=== PATIENT | female | born 1990 | race Caucasian/White ===

== ENCOUNTER 2023-07-19 18:40 | Inpatient (IN) | payer BC ==
[2023-07-19] MEDS ORDERED: hydrALAZINE 20 MG/ML VIAL SLOW IVP PRN (18:49)
[2023-07-19] MEDS ORDERED: Docusate 100 MG CAP PO PRN (18:49)
[2023-07-19] MEDS ORDERED: Misoprostol 200 MCG TAB PR PRN (18:49)
[2023-07-19] MEDS ORDERED: Methylergonovine 0.2 MG/ML VIAL IM PRN (18:49)
[2023-07-19] MEDS ORDERED: Zolpidem Tartrate 5 MG TAB PO PRN (18:49)
[2023-07-19] MEDS ORDERED: Acetaminophen 500 MG TAB PO PRN (18:49)
[2023-07-19] MEDS ORDERED: Carboprost 250 MCG/ML AMP IM PRN (18:49)
[2023-07-19] MEDS ORDERED: Promethazine HCl 25 MG/ML VIAL IM PRN (18:49)
[2023-07-19] MEDS ORDERED: Ondansetron PF 4 MG/2 ML Vial IVP PRN (18:49)
[2023-07-19] MEDS ORDERED: Diphenoxylate HCl/Atropine Tablet PO PRN (18:49)
[2023-07-19] MEDS ORDERED: Lidocaine 1% (PF) 30 ML VIAL SC PRN (18:49)
[2023-07-19] MEDS ORDERED: fentaNYL 50 mcg/mL 1 mL Vial SLOW IVP PRN (18:49)
[2023-07-19] MEDS ORDERED: Oxytocin 30 units/NS 500 ML 500 ML IV SCH ×2 (19:00)
[2023-07-19 19:15] VITALS: BMI 30.9
[2023-07-19] MEDS ORDERED: Bupivacaine 0.25% HCL 30 ML VIAL ONE (19:55)
[2023-07-19] MEDS ORDERED: Lidocaine 2% MPF 10 ML AMP (For Epidural Use) ONE (19:55)
[2023-07-19 20:22] LABS: Hematocrit 36.2 % (34.9-44.5); Hemoglobin 12.4 g/dL (12.0-15.5); Mean Corpuscular HGB CONC 34.3 g/dL (32.0-36.0); Mean Corpuscular Hemoglobin 29.5 pg (27.0-33.0); Mean Corpuscular Volume 86.2 fl (81.6-98.3); Mean Platelet Volume 10.4 fl (7.4-10.4); Platelet Count 271 10x3/uL (150-450); RBC Distribution Width 13.1 % (11.5-14.5); White Blood Cell (WBC) Count 11.6 10x3/uL (3.5-10.5)
[2023-07-19] MEDS: Lactated Ringer's 1,000 ML IV SCH (20:23)
[2023-07-19] MEDS: CEFAZOLIN 1 GM in Sodium Chloride 0.9% 100 ML IVPB SCH (20:23)
[2023-07-19 20:52] LABS: HBSAg Index 0.16 S/CO (0-0.99); Hep B Surf Ag - L&D Non-Reactive S/CO (NonReactive)
[2023-07-19 20:53] LABS: HIV (1/2) Antibody/Antigen Non-Reactive (NonReactive); HIV 1/2 INDEX 0.11 S/CO (<1.00); Syphilis Antibody Nonreactive (Nonreactive); Syphilis Antibody Index 0.04 S/CO (<1.00 Non-Reactive)
[2023-07-19] MEDS ORDERED: fentaNYL/Ropivacaine Epidural 100 ML ONE (23:23)
[2023-07-20] MEDS ORDERED: ePHEDrine Sulfate 50 MG/10 ML VIAL SLOW IVP PRN (00:13)
[2023-07-20] MEDS ORDERED: Moisturizing Cream (Eucerin) 113 GM JAR TOP PRN (00:13)
[2023-07-20] MEDS ORDERED: Ondansetron PF 4 MG/2 ML Vial IVP PRN (00:13)
[2023-07-20] MEDS ORDERED: Promethazine HCl 25 MG/ML VIAL IM PRN (00:13)
[2023-07-20] MEDS ORDERED: diphenhydrAMINE 50 MG/ML VIAL IVP PRN (00:13)
[2023-07-20] MEDS ORDERED: Naloxone HCl 0.4 mg/ml Vial IVP PRN ×2 (00:13)
[2023-07-20] MEDS ORDERED: Lactated Ringer's 500 ML IV PRN (00:13)
[2023-07-20] MEDS ORDERED: fentaNYL 2 mcg/Ropivacaine 0.2% Epidural 100 ML CADD EPIDURAL SCH (00:15)
[2023-07-20] MEDS ORDERED: Communication Order-Pharmacy FS SCH (00:15)
[2023-07-20] MEDS: Lactated Ringer's 1,000 ML IV SCH (03:28)
[2023-07-20] MEDS: CEFAZOLIN 1 GM in Sodium Chloride 0.9% 100 ML IVPB SCH (04:33)
[2023-07-20] MEDS ORDERED: CEFAZOLIN 2 GM VIAL ONE (12:15)
[2023-07-20] MEDS: Acetaminophen 325 MG TAB PO PRN ×2 (15:32→21:46)
[2023-07-20] MEDS ORDERED: Ibuprofen 800 MG TAB PO SCH (15:45)
[2023-07-20] MEDS ORDERED: Boostrix 0.5 ML (Tdap) VIAL (>/=7 yrs of age) IM ONE (16:20)
[2023-07-20] MEDS ORDERED: Benzocaine-Menthol 82.5 ML CAN TOP PRN (16:20)
[2023-07-20] MEDS ORDERED: diphenhydrAMINE 25 MG CAP PO PRN (16:20)
[2023-07-20] MEDS ORDERED: hydrALAZINE 20 MG/ML VIAL SLOW IVP PRN (16:20)
[2023-07-20] MEDS ORDERED: Preparation H Ointment 28 GM TUBE PR PRN (16:20)
[2023-07-20] MEDS ORDERED: Lanolin Ointment 7 GM TUBE TOP PRN (16:20)
[2023-07-20] MEDS ORDERED: Milk Of Magnesia 30 ML UDCUP PO PRN (16:20)
[2023-07-20] MEDS ORDERED: Bisacodyl 10 MG SUPP PR PRN (16:20)
[2023-07-20] MEDS: Ibuprofen 800 MG TAB PO SCH (17:08)
[2023-07-20] MEDS: Ferrous Sulfate 325 MG TAB PO SCH (17:10)
[2023-07-20] MEDS: Docusate 100 MG CAP PO SCH (21:41)
[2023-07-21] MEDS: Ibuprofen 800 MG TAB PO SCH ×2 (00:07→10:08)
[2023-07-21] MEDS: Acetaminophen 325 MG TAB PO PRN ×4 (04:12→23:08)
[2023-07-21] MEDS: Docusate 100 MG CAP PO SCH ×2 (10:08→20:52)
[2023-07-21] MEDS: Ferrous Sulfate 325 MG TAB PO SCH ×2 (10:09→17:32)
[2023-07-21] MEDS: Prenatal Vitamin 1 TAB PO SCH (10:09)
[2023-07-21] MEDS: Ibuprofen 100 MG/5 ML UDCUP PO SCH ×2 (15:51→23:05)
[2023-07-21] MEDS: CEFAZOLIN 1 GM in Sodium Chloride 0.9% 100 ML IVPB SCH (17:57)
[2023-07-21] MEDS: Lactated Ringer's 1,000 ML IV SCH (17:57)
[2023-07-22] MEDS: Acetaminophen 325 MG TAB PO PRN (03:16)
[2023-07-22] MEDS: Ibuprofen 100 MG/5 ML UDCUP PO SCH ×2 (07:28→14:21)
[2023-07-22 07:57] VITALS: BP 115/65; TEMP 98.3
[2023-07-22] MEDS: Docusate 100 MG CAP PO SCH (08:55)
[2023-07-22] MEDS: Prenatal Vitamin 1 TAB PO SCH (08:56)
[2023-07-22] MEDS: Ferrous Sulfate 325 MG TAB PO SCH ×2 (08:56→18:14)
[2023-07-22] MEDS ORDERED: HYDROcodone/Acetaminophen 5/325 mg Tablet PO PRN (09:33)
[2023-07-22] MEDS: HYDROcodone/Acetaminophen 5/325 mg Tablet PO PRN ×2 (14:20→18:15)
== END 2023-07-22 18:20 | disposition home or self-care (01) | DRG 807 ==
LOC: CSHLD 18:40 → CSHPP 07-20 16:21
PROVIDERS: ADMIT Obstetrics & Gynecology; ATTEND Obstetrics & Gynecology
PROC: 10D07Z6 Extraction of Products of Conception, Vacuum, Via Natural or Artificial Opening (ICD-10-PCS; principal; 2023-07-20)
DX: O99.214 Obesity complicating childbirth (principal); Z37.0 Single live birth; Z3A.38 38 weeks gestation of pregnancy
CPT/HCPCS: 36415; 51702; 85027; 86780; 86850; 86900; 86901; 87340; 87389; J0690; J2405; J2590; J3010; J3490; J7120; S0020